=== PATIENT | female | born 1945 | race Caucasian/White ===

== ENCOUNTER 2019-07-25 09:32 | Inpatient (IN) | payer MEDICARE, OTHER ==
--- NOTE | 2019-07-25 10:29 | EDM.PDOC ---
ED HPI GENERAL MEDICAL PROBLEM - General Chief Complaint: Gastrointestinal Problem Stated Complaint: BLOOD IN STOOL Time Seen by Provider: 07/25/19 09:55 Source of Information: Reports: Patient History Limitations: Reports: No Limitations - History of Present Illness INITIAL COMMENTS - FREE TEXT/NARRATIVE: 74-year-old female who arrives with hypotension this morning along with maroon stools for the past 48 hours. She is on Plavix after being diagnosed with coronary artery disease and receiving a stent 3 months ago, and has been on anticoagulation since that time. Originally she was on Brilinta, but side effects were tolerated and she was changed to Plavix over a month ago. She bruises easily but has not had any problems with GI bleeding. She has known hemorrhoids and has had a colonoscopy within the past couple of years. She has no abdominal pain, nausea or vomiting, she has a good appetite, but does feel somewhat weaker today than her baseline. No shortness of breath or fever. She has had maroonish soft stools for the past 48 hours. Duration: Day(s): (Maroon stools for the past 2 days) Associated Symptoms: Reports: Weakness - Related Data Allergies Allergy/AdvReac Type Severity Reaction Status Date / Time No Known Allergies Allergy Verified 11/01/15 07:57 Home Meds: Home Meds Calcium Carbonate/Vitamin D3 [Calcium Carbonate/Vitamin D 1250 MG-200 Unit] 1 tab PO DAILY 10/30/15 [History] Lisinopril 40 mg PO DAILY 10/30/15 [History] Multivitamin with Minerals [Multiple Vitamin] 1 tab PO DAILY 10/30/15 [History] Omeprazole Magnesium [Prilosec Otc] 20 mg PO DAILY 10/30/15 [History] atorvaSTATin [Lipitor] 40 mg PO BEDTIME 10/30/15 [History] cycloSPORINE [Restasis] 1 drop EYEBOTH DAILY 10/30/15 [History] Aspirin [Halfprin] 81 mg PO DAILY 07/25/19 [History] Clopidogrel [Plavix] 75 mg PO DAILY 07/25/19 [History] Past Medical History HEENT History: Reports: Allergic Rhinitis, Hard of Hearing, Impaired Vision Cardiovascular History: Reports: High Cholesterol, Hypertension, [place], Stents Gastrointestinal History: Reports: None Genitourinary History: Reports: UTI, Recurrent 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: Musculoskeletal History: Reports: Osteoarthritis Hematologic History: Reports: Blood Transfusion(s) - Infectious Disease History Infectious Disease History: Reports: Chicken Pox, Measles, Mumps - Past Surgical History HEENT Surgical History: Reports: Tonsillectomy, Other (See Below) Cardiovascular Surgical History: Reports: Coronary Artery Stent, Other (See Below) Other Cardiovascular Surgeries/Procedures: STENTS PLACE IN APRIL AND MAY OF 2019 GI Surgical History: Reports: Colonoscopy, Other (See Below) Musculoskeletal Surgical History: Reports: Other (See Below) Social & Family History - Tobacco Use Smoking Status *Q: Never Smoker ED ROS GENERAL - Review of Systems Review Of Systems: See Below Constitutional: Denies: Fever, Chills, Malaise HEENT: Reports: No Symptoms Respiratory: Denies: Shortness of Breath Cardiovascular: Denies: Chest Pain GI/Abdominal: Reports: Bloody Stool, Hematochezia. Denies: Abdominal Pain, Nausea, Vomiting : Reports: No Symptoms Skin: Reports: No Symptoms (Get) Neurological: Reports: Weakness. Denies: Dizziness, Headache, Syncope, Difficulty Walking Psychiatric: Reports: No Symptoms ED EXAM, GI/ABD - Physical Exam Exam: See Below Exam Limited By: No Limitations General Appearance: Alert, No Apparent Distress Eyes: Bilateral: Normal Appearance Respiratory/Chest: No Respiratory Distress, Lungs Clear Cardiovascular: Regular Rate, Rhythm, Tachycardia GI/Abdominal Exam: Soft, Non-Tender Rectal (Female) Exam: Bloody Stool, Heme + Stool. No: Hemorrhoids, Mass, Perirectal Abscess, Rectal Fissure, Tenderness Extremities: Normal Inspection. No: Pedal Edema Neurological: Alert, Oriented Psychiatric: Normal Affect, Normal Mood Skin Exam: Warm, Dry, Other (A few scattered superficial bruises are present, the largest is on her left forearm) Course - Vital Signs Last Recorded V/S: Last Vital Signs Temp 97.6 F 07/25/19 14:48 Pulse 84 07/25/19 16:05 Resp 13 07/25/19 16:05 BP 132/74 07/25/19 16:05 Pulse Ox 100 07/25/19 16:05 - Orders/Labs/Meds Orders: Medication Orders Acetaminophen (Tylenol) 650 mg PO Q4H PRN PRN Reason: Pain (Mild 1-3)/fever Last Admin: 07/25/19 16:12 Dose: 650 mg Artificial Tears (Genteal Mild To Moderate Ophth Soln) 0 ml EYEBOTH QID PRN PRN Reason: DRY EYES Aspirin (Halfprin) 81 mg PO DAILY WILL Atorvastatin Calcium (Lipitor) 40 mg PO BEDTIME WILL Bisacodyl (Dulcolax) 10 mg PO ONETIME ONE Stop: 07/25/19 20:01 Clopidogrel Bisulfate (Plavix) 75 mg PO DAILY [facility] Sodium Chloride (Normal Saline) 1,000 mls @ 125 mls/hr IV ASDIRECTED WILL Lisinopril (Prinivil) 20 mg PO DAILY WILL Ondansetron HCl (Zofran) 4 mg IV Q4H PRN PRN Reason: Nausea/Vomiting Pantoprazole Sodium (Protonix Iv) 40 mg IVPUSH Q12H WILL Polyethylene Glycol (Miralax) 238 gm PO ONETIME ONE Stop: 07/25/19 17:01 Sodium Chloride (Saline Flush) 10 ml FLUSH ASDIRECTED PRN PRN Reason: Keep Vein Open Labs: Laboratory Tests 07/25/19 07/25/19 07/25/19 Range/Units 10:28 10:28 10:28 WBC 5.6 (4.5-11.0) K/uL RBC 3.57 (3.30-5.50) M/uL Hgb 10.5 L (12.0-15.0) g/dL Hct 34.2 L (36.0-48.0) % MCV 96 (80-98) fL MCH 29 (27-31) pg MCHC 31 L (32-36) % Plt Count 313 (150-400) K/uL Neut % (Auto) 73 H (36-66) % Lymph % (Auto) 18 L (24-44) % [place] % (Auto) 8 H (2-6) % Eos % (Auto) 1 L (2-4) % Baso % (Auto) 1 (0-1) % PT 10.6 (9.5-12.0) sec INR 0.98 (0.80-1.20) Sodium 138 L (140-148) mmol/L Potassium 4.1 (3.6-5.2) mmol/L Chloride 101 (100-108) mmol/L Carbon Dioxide 26 (21-32) mmol/L Anion Gap 15.1 H (5.0-14.0) mmol/L BUN 18 (7-18) mg/dL Creatinine 1.0 (0.6-1.0) mg/dL Est Cr Clr Drug Dosing 38.44 mL/min Estimated GFR (MDRD) 54 L (>60) Glucose 98 (74-106) mg/dL Calcium 9.0 (8.5-10.1) mg/dL Total Bilirubin 0.3 (0.2-1.0) mg/dL AST 21 (15-37) U/L ALT 29 (12-78) U/L Alkaline Phosphatase 96 (46-116) U/L Total Protein 7.3 (6.4-8.2) g/dL Albumin 4.1 (3.4-5.0) g/dL Globulin 3.2 (2.3-3.5) g/dL Albumin/Globulin Ratio 1.3 (1.2-2.2) Meds: Medications Generic Name Dose Route Start Last Admin Trade Name Freq PRN Reason Stop Dose Admin Acetaminophen 650 mg 07/25/19 11:35 07/25/19 16:12 Tylenol PO 650 mg Q4H PRN Administration Pain (Mild 1-3)/fever Artificial Tears 0 ml 07/25/19 12:42 Genteal Mild To Moderate Ophth Soln EYEBOTH QID PRN DRY EYES Aspirin 81 mg 07/26/19 09:00 Halfprin PO DAILY [facility] Atorvastatin Calcium 40 mg 07/25/19 21:00 Lipitor PO BEDTIME [facility] Bisacodyl 10 mg 07/25/19 20:00 Dulcolax PO 07/25/19 20:01 ONETIME ONE Clopidogrel Bisulfate 75 mg 07/26/19 09:00 Plavix PO DAILY [facility] Sodium Chloride 1,000 mls @ 125 mls/hr 07/25/19 11:35 Normal Saline IV ASDIRECTED [facility] Lisinopril 20 mg 07/26/19 09:00 Prinivil PO DAILY [facility] Ondansetron HCl 4 mg 07/25/19 11:35 Zofran IV Q4H PRN Nausea/Vomiting Pantoprazole Sodium 40 mg 07/25/19 20:00 Protonix Iv IVPUSH Q12H [facility] Polyethylene Glycol 238 gm 07/25/19 17:00 Miralax PO 07/25/19 17:01 ONETIME ONE Sodium Chloride 10 ml 07/25/19 11:35 Saline Flush FLUSH ASDIRECTED PRN Keep Vein Open Discontinued Medications Generic Name Dose Route Start Last Admin Trade Name Wyatt PRN Reason Stop Dose Admin Bisacodyl 10 mg 07/25/19 14:13 07/25/19 14:37 Dulcolax PO 07/25/19 14:14 10 mg ONETIME ONE Administration Fentanyl Confirm 07/25/19 11:36 Sublimaze Administered 07/25/19 11:37 Dose 100 mcg .ROUTE .STK-MED ONE Sodium Chloride 1,000 mls @ 500 mls/hr 07/25/19 10:30 07/25/19 10:33 Normal Saline IV 500 mls/hr ASDIRECTED WILL Administration Octreotide Acetate 500 mcg/ 500 mls @ 50 mls/hr 07/25/19 12:00 07/25/19 13:37 Sodium Chloride IV 50 mcg/hr Q10H WILL 50 mls/hr Administration 50 MCG/HR Pantoprazole Sodium 80 mg/ 100 mls @ 10 mls/hr 07/25/19 12:00 07/25/19 13:32 Sodium Chloride IV 10 mls/hr .Q10H WILL Administration Midazolam HCl Confirm 07/25/19 11:36 Versed 1 Mg/Ml Administered 07/25/19 11:37 Dose 2 mg .ROUTE .STK-MED ONE Octreotide Acetate 50 mcg 07/25/19 11:50 07/25/19 13:44 Sandostatin IVPUSH 07/25/19 11:51 50 mcg ONETIME ONE Administration Pantoprazole Sodium 80 mg 07/25/19 10:30 07/25/19 10:35 Protonix Iv IVPUSH 80 mg .BOLUS WILL Administration Propofol Confirm 07/25/19 11:36 Diprivan 20 Ml Administered 07/25/19 11:37 Dose 200 mg .ROUTE .STK-MED ONE - Re-Assessments/Exams Free Text/Narrative Re-Assessment/Exam: 07/25/19 10:28 An IV was started and the patient will be given 500 cc of normal saline an hour , CBC CMP pro time and INR were obtained. Hemoccult confirmed blood in the stool which was obvious visually as well 07/25/19 10:44 Hemoglobin is 10.5, the most recent we can find from clinical records is 13.5 9 months ago. BMP is still pending, BUN likely will be elevated. Discussed her condition with Dr. Lara of the hospitalist service, should be given 80 mg of IV Protonix and be prepared for admission for observation. 07/25/19 10:56 INR is 0.98, chemistry profile is surprisingly normal even BUN. Departure - Departure Time of Disposition: 11:52 Disposition: Admitted As Inpatient 65 Clinical Impression: Hematochezia GI bleed Qualifiers: GI bleed type/associated pathology: melena Qualified Code(s): K92.1 - Melena - Discharge Information Sepsis Event Note - Evaluation Sepsis Screening Result: No Definite Risk - Focused Exam Vital Signs: Vital Signs Temp Pulse Resp BP Pulse Ox 07/25/19 09:51 95 144/75 H 07/25/19 09:46 97.8 F 105 H 16 165/68 H 99 07/25/19 09:45 97.8 F 105 H 16 165/68 H 99 Date Exam was Performed: 07/25/19 Time Exam was Performed: 16:16
[2019-07-25] MEDS ORDERED: Pantoprazole 40 MG Vial IVPUSH SCH (10:30)
[2019-07-25] MEDS ORDERED: Sodium Chloride 0.9% 1,000 ML IV SCH (10:30)
--- NOTE | 2019-07-25 11:07 | PCM.HP.2 ---
H&P History of Present Illness - General Date of Service: 07/25/19 Admit Problem/Dx: Admission Diagnosis/Problem Admission Diagnosis/Problem Bleeding Source of Information: Patient, Provider, RN Notes Reviewed History Limitations: Reports: No Limitations - History of Present Illness Initial Comments - Free Text/Narative: Ms. Prabhakar is a 74-year-old woman who was admitted through the emergency department with lightheadedness, weakness, and melenic stool secondary to a GI bleed. She denies any previous history of ulcer disease or GI bleed. She is status post angioplasty with stent placements done in the last few months and is currently treated with aspirin and Plavix. Over the last 2 days has noted melenic maroon appearing stool and has developed symptoms of weakness and lightheadedness. Her last known hemoglobin level was over 13 and today is found to be 10.5. - Related Data Allergies/Adverse Reactions: Allergies Allergy/AdvReac Type Severity Reaction Status Date / Time No Known Allergies Allergy Verified 11/01/15 07:57 Home Medications: Home Meds Calcium Carbonate/Vitamin D3 [Calcium Carbonate/Vitamin D 1250 MG-200 Unit] 1 tab PO DAILY 10/30/15 [History] Lisinopril 20 mg PO DAILY 10/30/15 [History] Multivitamin with Minerals [Multiple Vitamin] 1 tab PO DAILY 10/30/15 [History] Omeprazole Magnesium [Prilosec Otc] 20 mg PO DAILY 10/30/15 [History] atorvaSTATin [Lipitor] 40 mg PO BEDTIME 10/30/15 [History] cycloSPORINE [Restasis] 1 drop EYEBOTH DAILY 10/30/15 [History] Aspirin [Halfprin] 81 mg PO DAILY 07/25/19 [History] Clopidogrel [Plavix] 75 mg PO DAILY 07/25/19 [History] Past Medical History HEENT History: Reports: Allergic Rhinitis, Hard of Hearing, Impaired Vision Cardiovascular History: Reports: High Cholesterol, Hypertension, [place], Stents Gastrointestinal History: Reports: None Genitourinary History: Reports: UTI, Recurrent 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: Musculoskeletal History: Reports: Osteoarthritis Hematologic History: Reports: Blood Transfusion(s) - Infectious Disease History Infectious Disease History: Reports: Chicken Pox, Measles, Mumps - Past Surgical History HEENT Surgical History: Reports: Tonsillectomy, Other (See Below) Cardiovascular Surgical History: Reports: Coronary Artery Stent, Other (See Below) Other Cardiovascular Surgeries/Procedures: STENTS PLACE IN APRIL AND MAY OF 2019 GI Surgical History: Reports: Colonoscopy, Other (See Below) Musculoskeletal Surgical History: Reports: Other (See Below) Social & Family History - Tobacco Use Smoking Status *Q: Never Smoker H&P Review of Systems - Review of Systems: Review Of Systems: See Below General: Reports: Weakness, Fatigue. Denies: Fever, Chills HEENT: Reports: No Symptoms Pulmonary: Reports: No Symptoms Cardiovascular: Reports: No Symptoms Gastrointestinal: Reports: Black Stool. Denies: Abdominal Pain, Constipation, Diarrhea, Decreased Appetite, Difficulty Swallowing, Distension, Hematochezia, Nausea, Vomiting Genitourinary: Reports: No Symptoms Musculoskeletal: Reports: No Symptoms Skin: Reports: No Symptoms Psychiatric: Reports: No Symptoms Neurological: Reports: No Symptoms Hematologic/Lymphatic: Reports: No Symptoms Immunologic: Reports: No Symptoms Exam - Exam Exam: See Below - Vital Signs Vital Signs: Last Vital Signs Temp 97.8 F 07/25/19 09:46 Pulse 95 07/25/19 09:51 Resp 16 07/25/19 09:46 BP 144/75 H 07/25/19 09:51 Pulse Ox 99 07/25/19 09:46 Weight: 135 lb - Exam Quality Assessment: DVT Prophylaxis General: Alert, Oriented, Cooperative, Mild Distress HEENT: Conjunctiva Clear, Hearing Intact, Mucosa Moist & [place], Normal Nasal Septum, Posterior Pharynx Clear, Pupils Equal Neck: Supple, Trachea Midline, +2 Carotid Pulse wo Bruit Lungs: Clear to Auscultation, Normal Respiratory Effort Cardiovascular: Regular Rate, Regular Rhythm, Normal S1, Normal S2. No: Systolic Murmur, Diastolic Murmur GI/Abdominal Exam: Soft, Non-Tender, No Organomegaly, No Distention Extremities: Non-Tender, No Pedal Edema Skin: Warm, Dry Neurological: Cranial Nerves Intact, Strength Equal Bilateral, Normal Speech, Normal Tone, Sensation Intact. No: Focal Deficit Neuro Extensive - Mental Status: Alert, Oriented x3, Normal Mood/Affect, Normal Cognition, Memory Intact - Patient Data Lab Results Last 24 hrs: Laboratory Results - last 24 hr 07/25/19 07/25/19 07/25/19 Range/Units 10:28 10:28 10:28 WBC 5.6 (4.5-11.0) K/uL RBC 3.57 (3.30-5.50) M/uL Hgb 10.5 L (12.0-15.0) g/dL Hct 34.2 L (36.0-48.0) % MCV 96 (80-98) fL MCH 29 (27-31) pg MCHC 31 L (32-36) % Plt Count 313 (150-400) K/uL Neut % (Auto) 73 H (36-66) % Lymph % (Auto) 18 L (24-44) % [place] % (Auto) 8 H (2-6) % Eos % (Auto) 1 L (2-4) % Baso % (Auto) 1 (0-1) % PT 10.6 (9.5-12.0) sec INR 0.98 (0.80-1.20) Sodium 138 L (140-148) mmol/L Potassium 4.1 (3.6-5.2) mmol/L Chloride 101 (100-108) mmol/L Carbon Dioxide 26 (21-32) mmol/L Anion Gap 15.1 H (5.0-14.0) mmol/L BUN 18 (7-18) mg/dL Creatinine 1.0 (0.6-1.0) mg/dL Est Cr Clr Drug Dosing 38.44 mL/min Estimated GFR (MDRD) 54 L (>60) Glucose 98 (74-106) mg/dL Calcium 9.0 (8.5-10.1) mg/dL Total Bilirubin 0.3 (0.2-1.0) mg/dL AST 21 (15-37) U/L ALT 29 (12-78) U/L Alkaline Phosphatase 96 (46-116) U/L Total Protein 7.3 (6.4-8.2) g/dL Albumin 4.1 (3.4-5.0) g/dL Globulin 3.2 (2.3-3.5) g/dL Albumin/Globulin Ratio 1.3 (1.2-2.2) Result Diagrams: 07/25/19 10:28 07/25/19 10:28 Gigi Results Last 24 hrs: Microbiology 07/25/19 10:19 Stool Occult Blood (GIGI) - Final Stool / Feces Sepsis Event Note - Evaluation Sepsis Screening Result: No Definite Risk - Focused Exam Vital Signs: Vital Signs Temp Pulse Resp BP Pulse Ox 07/25/19 09:51 95 144/75 H 07/25/19 09:46 97.8 F 105 H 16 165/68 H 99 07/25/19 09:45 97.8 F 105 H 16 165/68 H 99 Date Exam was Performed: 07/25/19 Time Exam was Performed: 11:46 *Q Meaningful Use (ADM) - VTE *Q VTE Pharmacological Contraindications *Q: Active Hemorrhage - VTE Risk Assess *Q Each Risk Factor Represents 1 Point: None Total Score 1 Point Risk Factors: 0 Each Risk Factor Represents 2 Points: None Total Score 2 Point Risk Factors: 0 Each Risk Factor Represents 3 Points: Age 75 Years or Greater Total Score 3 Point Risk Factors: 3 Each Risk Factor Represents 5 Points: None Total Score 5 Point Risk Factors: 0 Venous Thromboembolism Risk Factor Score *Q: 3 Problem List Initiated/Reviewed/Updated: Yes Orders Last 24hrs: Active Orders 24 hr Category Date Time Status Patient Status Manage Transfer [TRANSFER] Routine ADT 07/25/19 10:47 Active Pantoprazole [ProTONIX IV] Med 07/25/19 10:30 Active 80 mg IVPUSH .BOLUS Sodium Chloride 0.9% [Normal Saline] 1,000 ml Med 07/25/19 10:30 Active IV ASDIRECTED Resuscitation Status Routine Resus Stat 07/25/19 10:48 Ordered Medication Orders Sodium Chloride (Normal Saline) 1,000 mls @ 500 mls/hr IV ASDIRECTED [facility] Last Admin: 07/25/19 10:33 Dose: 500 mls/hr Pantoprazole Sodium (Protonix Iv) 80 mg IVPUSH .BOLUS [facility] Last Admin: 07/25/19 10:35 Dose: 80 mg Assessment/Plan Comment:: ASSESSMENT AND PLAN GASTROINTESTINAL BLEED-likely source upper GI tract. History of melenic/maroon stool for the last 2 days. Symptoms of weakness and lightheadedness, denies abdominal pain. Complicated by current therapy with aspirin and Plavix. -Maintain 2 IV sites -2 units of blood on hold -Protonix IV bolus and continuous infusion -Octreotide bolus and continuous infusion -Serial hemoglobin levels -Monitor in ICU -Consult Dr. Regan for EGD ACUTE BLOOD LOSS ANEMIA-secondary to upper GI bleed CORONARY ARTERY DISEASE-history of angioplasty and stents within the past several months. -Continue outpatient medical therapy including aspirin and Plavix MAINTENANCE ISSUES -DVT prophylaxis; SCUDs, hold on anticoagulation because of acute hemorrhage -GI prophylaxis; Protonix as above -Santos catheter; not indicated -Nutrition; n.p.o. until after EGD -Nicotine dependence; not required CODE STATUS-FULL CODE ADMISSION STATUS-patient will be admitted to inpatient status, expect at least a 2 night hospital stay for evaluation and management of problems as outlined above. At the time of this admission I do not reasonably expected evaluation and management of this problem will require more than a 96 hour hospital stay. DISPOSITION-anticipate discharge to home after the hospital stay. PRIMARY CARE PROVIDER-Lavern Myers - Mortality Measure Prognosis:: Good
[2019-07-25] MEDS ORDERED: Ondansetron 4 MG/2 ML SDV IV PRN (11:35)
[2019-07-25] MEDS ORDERED: Sodium Chloride 0.9% 10 ML Syringe FLUSH PRN (11:35)
[2019-07-25] MEDS ORDERED: fentaNYL 100 MCG/2 ML SDV ONE (11:36)
[2019-07-25] MEDS ORDERED: Midazolam 1 MG/ML 2 ML SDV ONE (11:36)
[2019-07-25] MEDS ORDERED: Propofol 200 MG/20 ML SDV ONE (11:36)
[2019-07-25] MEDS ORDERED: Octreotide 100 MCG/ML SDV IVPUSH ONE (11:50)
[2019-07-25] MEDS ORDERED: Sodium Chloride 0.9% 100 ML with Pantoprazole 80 MG IV SCH ×2 (12:00)
[2019-07-25] MEDS ORDERED: Octreotide 500 MCG in Sodium Chloride 0.9% 497.5 ML IV SCH (12:00)
[2019-07-25] MEDS ORDERED: Hypromellose 0.3% Ophth Soln 15 ML Bottle EYEBOTH PRN (12:42)
[2019-07-25] MEDS ORDERED: Bisacodyl 5 MG Tab PO ONE ×2 (14:13→20:00)
[2019-07-25] MEDS: Acetaminophen 325 MG Tab PO PRN ×2 (16:12→20:26)
[2019-07-25] MEDS: Sodium Chloride 0.9% 1,000 ML IV SCH (16:16)
[2019-07-25] MEDS ORDERED: Polyethylene Glycol 3350 Powder 238 GM Bot PO ONE (17:00)
[2019-07-25] MEDS: atorvaSTATin 20 MG Tab PO SCH ×2 (20:26→20:31)
[2019-07-25] MEDS: Pantoprazole 40 MG Vial IVPUSH SCH (20:26)
[2019-07-25] MEDS ORDERED: Non-Formulary Medication 1 Each (Atorvastatin [Lipitor] 40 MG) PO SCH (21:00)
[2019-07-26] MEDS: Sodium Chloride 0.9% 1,000 ML IV SCH (02:58)
[2019-07-26] MEDS ORDERED: Midazolam 1 MG/ML 2 ML SDV ONE (07:03)
[2019-07-26] MEDS ORDERED: fentaNYL 100 MCG/2 ML SDV ONE (07:03)
[2019-07-26] MEDS ORDERED: Propofol 200 MG/20 ML SDV ONE (07:04)
[2019-07-26] MEDS: Pantoprazole 40 MG Vial IVPUSH SCH (08:38)
[2019-07-26] MEDS ORDERED: Non-Formulary Medication 1 Each (Cyclosporine [Restasis] 1 DROP) EYEBOTH SCH (09:00)
--- NOTE | 2019-07-26 10:14 | PCM.PN ---
- General Info Date of Service: 07/26/19 Subjective Update: Ms. Prabhakar has been fairly stable since admission. No evidence of active bleeding during the night. Hemoglobin did drop to 8.2 last night, because of concern for active bleeding she was transfused 1 unit of red blood cells. EGD performed yesterday by Dr. Regan showed only mild gastritis. Colonoscopy this morning showed diverticulosis but no evidence of active bleeding. Functional Status: Reports: Tolerating Diet, Ambulating, Urinating - Review of Systems General: Reports: Weakness. Denies: Fever, Chills Pulmonary: Reports: No Symptoms Cardiovascular: Reports: No Symptoms Gastrointestinal: Reports: No Symptoms - Patient Data Vitals - Most Recent: Last Vital Signs Temp 97.5 F 07/26/19 07:55 Pulse 76 07/26/19 06:00 Resp 14 07/26/19 09:30 BP 131/69 07/26/19 09:30 Pulse Ox 99 07/26/19 09:30 Weight - Most Recent: 142 lb I&O - Last 24 Hours: Intake & Output 07/25/19 07/26/19 07/26/19 22:59 06:59 14:59 Intake Total 3258 1449 Balance 3258 1449 Lab Results Last 24 Hours: Laboratory Results - last 24 hr 07/25/19 07/25/19 07/25/19 Range/Units 10:28 10:28 10:28 WBC 5.6 (4.5-11.0) K/uL RBC 3.57 (3.30-5.50) M/uL Hgb 10.5 L (12.0-15.0) g/dL Hct 34.2 L (36.0-48.0) % MCV 96 (80-98) fL MCH 29 (27-31) pg MCHC 31 L (32-36) % Plt Count 313 (150-400) K/uL Neut % (Auto) 73 H (36-66) % Lymph % (Auto) 18 L (24-44) % Collin % (Auto) 8 H (2-6) % Eos % (Auto) 1 L (2-4) % Baso % (Auto) 1 (0-1) % PT 10.6 (9.5-12.0) sec INR 0.98 (0.80-1.20) Sodium 138 L (140-148) mmol/L Potassium 4.1 (3.6-5.2) mmol/L Chloride 101 (100-108) mmol/L Carbon Dioxide 26 (21-32) mmol/L Anion Gap 15.1 H (5.0-14.0) mmol/L BUN 18 (7-18) mg/dL Creatinine 1.0 (0.6-1.0) mg/dL Est Cr Clr Drug Dosing 38.44 mL/min Estimated GFR (MDRD) 54 L (>60) Glucose 98 (74-106) mg/dL Calcium 9.0 (8.5-10.1) mg/dL Total Bilirubin 0.3 (0.2-1.0) mg/dL AST 21 (15-37) U/L ALT 29 (12-78) U/L Alkaline Phosphatase 96 (46-116) U/L Total Protein 7.3 (6.4-8.2) g/dL Albumin 4.1 (3.4-5.0) g/dL Globulin 3.2 (2.3-3.5) g/dL Albumin/Globulin Ratio 1.3 (1.2-2.2) Blood Type Gel Antibody Screen Crossmatch 07/25/19 07/25/19 07/25/19 Range/Units 11:55 11:55 17:00 WBC (4.5-11.0) K/uL RBC (3.30-5.50) M/uL Hgb 9.3 L 9.9 L (12.0-15.0) g/dL Hct (36.0-48.0) % MCV (80-98) fL MCH (27-31) pg MCHC (32-36) % Plt Count (150-400) K/uL Neut % (Auto) (36-66) % Lymph % (Auto) (24-44) % Collin % (Auto) (2-6) % Eos % (Auto) (2-4) % Baso % (Auto) (0-1) % PT (9.5-12.0) sec INR (0.80-1.20) Sodium (140-148) mmol/L Potassium (3.6-5.2) mmol/L Chloride (100-108) mmol/L Carbon Dioxide (21-32) mmol/L Anion Gap (5.0-14.0) mmol/L BUN (7-18) mg/dL Creatinine (0.6-1.0) mg/dL Est Cr Clr Drug Dosing mL/min Estimated GFR (MDRD) (>60) Glucose (74-106) mg/dL Calcium (8.5-10.1) mg/dL Total Bilirubin (0.2-1.0) mg/dL AST (15-37) U/L ALT (12-78) U/L Alkaline Phosphatase (46-116) U/L Total Protein (6.4-8.2) g/dL Albumin (3.4-5.0) g/dL Globulin (2.3-3.5) g/dL Albumin/Globulin Ratio (1.2-2.2) Blood Type A POSITIVE Gel Antibody Screen Negative Crossmatch See Detail 07/25/19 07/26/19 07/26/19 Range/Units 23:00 05:30 05:30 WBC 6.0 (4.5-11.0) K/uL RBC 3.69 (3.30-5.50) M/uL Hgb 8.2 L 10.8 L D (12.0-15.0) g/dL Hct 34.2 L (36.0-48.0) % MCV 93 (80-98) fL MCH 29 (27-31) pg MCHC 32 (32-36) % Plt Count 261 (150-400) K/uL Neut % (Auto) 65 (36-66) % Lymph % (Auto) 26 (24-44) % Collin % (Auto) 7 H (2-6) % Eos % (Auto) 1 L (2-4) % Baso % (Auto) 1 (0-1) % PT (9.5-12.0) sec INR (0.80-1.20) Sodium 142 (140-148) mmol/L Potassium 4.2 (3.6-5.2) mmol/L Chloride 108 (100-108) mmol/L Carbon Dioxide 26 (21-32) mmol/L Anion Gap 8.4 (5.0-14.0) mmol/L BUN 11 (7-18) mg/dL Creatinine 0.9 (0.6-1.0) mg/dL Est Cr Clr Drug Dosing 43.70 mL/min Estimated GFR (MDRD) > 60 (>60) Glucose 88 (74-106) mg/dL Calcium 8.3 L (8.5-10.1) mg/dL Total Bilirubin (0.2-1.0) mg/dL AST (15-37) U/L ALT (12-78) U/L Alkaline Phosphatase (46-116) U/L Total Protein (6.4-8.2) g/dL Albumin (3.4-5.0) g/dL Globulin (2.3-3.5) g/dL Albumin/Globulin Ratio (1.2-2.2) Blood Type Gel Antibody Screen Crossmatch Gigi Results Last 24 Hours: Microbiology 07/25/19 10:19 Stool Occult Blood (GIGI) - Final Stool / Feces Med Orders - Current: Current Medications Acetaminophen (Tylenol) 650 mg PO Q4H PRN PRN Reason: Pain (Mild 1-3)/fever Last Admin: 07/25/19 20:26 Dose: 650 mg Artificial Tears (Genteal Mild To Moderate Ophth Soln) 0 ml EYEBOTH QID PRN PRN Reason: DRY EYES Aspirin (Halfprin) 81 mg PO DAILY [facility] Atorvastatin Calcium (Lipitor) 40 mg PO BEDTIME WILL Last Admin: 07/25/19 20:31 Dose: 40 mg Clopidogrel Bisulfate (Plavix) 75 mg PO DAILY [facility] Lisinopril (Prinivil) 20 mg PO DAILY [facility] Ondansetron HCl (Zofran) 4 mg IV Q4H PRN PRN Reason: Nausea/Vomiting Pantoprazole Sodium (Protonix) 40 mg PO DAILY [facility] Sodium Chloride (Saline Flush) 10 ml FLUSH ASDIRECTED PRN PRN Reason: Keep Vein Open Discontinued Medications Bisacodyl (Dulcolax) 10 mg PO ONETIME ONE Stop: 07/25/19 14:14 Last Admin: 07/25/19 14:37 Dose: 10 mg Bisacodyl (Dulcolax) 10 mg PO ONETIME ONE Stop: 07/25/19 20:01 Last Admin: 07/25/19 20:26 Dose: 10 mg Fentanyl (Sublimaze) Confirm Administered Dose 100 mcg .ROUTE .STK-MED ONE Stop: 07/25/19 11:37 Fentanyl (Sublimaze) Confirm Administered Dose 100 mcg .ROUTE .STK-MED ONE Stop: 07/26/19 07:04 Sodium Chloride (Normal Saline) 1,000 mls @ 500 mls/hr IV ASDIRECTED [facility] Last Admin: 07/25/19 10:33 Dose: 500 mls/hr Octreotide Acetate 500 mcg/ (Sodium Chloride) 500 mls @ 50 mls/hr IV Q10H [facility] Last Admin: 07/25/19 13:37 Dose: 50 mcg/hr, 50 mls/hr Pantoprazole Sodium 80 mg/ (Sodium Chloride) 100 mls @ 10 mls/hr IV .Q10H [facility] Last Admin: 07/25/19 13:32 Dose: 10 mls/hr Sodium Chloride (Normal Saline) 1,000 mls @ 125 mls/hr IV ASDIRECTED [facility] Last Admin: 07/26/19 02:58 Dose: 125 mls/hr Midazolam HCl (Versed 1 Mg/Ml) Confirm Administered Dose 2 mg .ROUTE .STK-MED ONE Stop: 07/25/19 11:37 Midazolam HCl (Versed 1 Mg/Ml) Confirm Administered Dose 2 mg .ROUTE .STK-MED ONE Stop: 07/26/19 07:04 Octreotide Acetate (Sandostatin) 50 mcg IVPUSH ONETIME ONE Stop: 07/25/19 11:51 Last Admin: 07/25/19 13:44 Dose: 50 mcg Pantoprazole Sodium (Protonix Iv) 80 mg IVPUSH .BOLUS [facility] Last Admin: 07/25/19 10:35 Dose: 80 mg Pantoprazole Sodium (Protonix Iv) 40 mg IVPUSH Q12H [facility] Last Admin: 07/26/19 08:38 Dose: 40 mg Polyethylene Glycol (Miralax) 238 gm PO ONETIME ONE Stop: 07/25/19 17:01 Last Admin: 07/25/19 16:41 Dose: 238 gm Propofol (Diprivan 20 Ml) Confirm Administered Dose 200 mg .ROUTE .STK-MED ONE Stop: 07/25/19 11:37 Propofol (Diprivan 20 Ml) Confirm Administered Dose 200 mg .ROUTE .STK-MED ONE Stop: 07/26/19 07:05 - Exam Quality Assessment: DVT Prophylaxis General: Alert, Oriented, Cooperative, No Acute Distress Lungs: Clear to Auscultation, Normal Respiratory Effort Cardiovascular: Regular Rate, Regular Rhythm, No Murmurs GI/Abdominal Exam: Soft, Non-Tender, No Organomegaly, No Distention Extremities: Non-Tender, No Pedal Edema Sepsis Event Note - Evaluation Sepsis Screening Result: No Definite Risk - Focused Exam Vital Signs: Vital Signs Temp Temp Pulse Resp BP Pulse Ox 07/26/19 09:30 14 131/69 99 07/26/19 09:15 12 128/58 L 07/26/19 09:00 12 142/66 H 98 07/26/19 08:45 12 123/78 98 07/26/19 08:32 12 134/78 100 07/26/19 08:15 16 126/69 99 07/26/19 08:10 16 116/62 99 07/26/19 08:05 15 93/55 L 99 07/26/19 08:00 16 92/49 L 99 07/26/19 07:55 97.5 F 14 79/39 L 99 07/26/19 07:35 97.8 F 12 139/78 99 07/26/19 06:00 76 17 137/73 97 07/26/19 04:00 97.0 F 74 13 114/60 98 07/26/19 02:57 96.8 F L 78 14 119/70 100 07/26/19 02:30 97.0 F 73 13 125/69 100 07/26/19 02:00 97.0 F 97.0 F 74 16 115/64 100 07/26/19 01:30 97.0 F 76 14 100/51 L 98 07/26/19 01:00 97.2 F 71 17 108/53 L 99 07/26/19 00:45 97.3 F 74 13 117/59 L 100 07/26/19 00:30 96.8 F L 81 16 122/74 99 07/26/19 00:15 96.8 F L 74 17 113/57 L 100 07/26/19 00:00 97.0 F 97.0 F 79 12 136/68 100 07/25/19 23:53 97.0 F 75 12 121/69 98 Date Exam was Performed: 07/26/19 Time Exam was Performed: 10:11 - Problem List Review Problem List Initiated/Reviewed/Updated: Yes - My Orders Last 24 Hours: My Active Orders 07/25/19 10:48 Resuscitation Status Routine 07/25/19 11:35 Patient Status [ADT] Routine Ambulate [RC] QID Cardiac Monitoring [RC] Q6H Height and Weight [RC] DAILY Intake and Output [RC] QSHIFT Notify Provider Consults [RC] ASDIRECTED Notify Provider Vital Signs [RC] ASDIRECTED Oxygen Therapy [RC] PRN Peripheral IV Care [RC] Q12H Up With Assistance [RC] ASDIRECTED Up to Chair [RC] QID Vital Signs [RC] Q2H Consult to Physician [CONS] Routine Acetaminophen [Tylenol] 650 mg PO Q4H PRN Ondansetron [Zofran] 4 mg IV Q4H PRN Sodium Chloride 0.9% [Saline Flush] 10 ml FLUSH ASDIRECTED PRN Peripheral IV Insertion Adult [OM.PC] Routine Sequential Compression Device [OM.PC] Per Unit Routine VTE Pharmacological Contraindications [AST] Per Unit Routine 07/25/19 11:55 RED BLOOD CELLS LP [BBK] Stat TYPE AND SCREEN [BBK] Stat 07/25/19 12:42 Hypromellose [GenTeal Mild to Moderate Ophth Soln] 0 ml EYEBOTH QID PRN 07/25/19 14:13 Schedule Procedure [COMM] Routine 07/25/19 21:00 atorvaSTATin [Lipitor] 40 mg PO BEDTIME 07/25/19 23:40 Transfuse Red Blood Cells [COMM] Urgent 07/26/19 09:00 Aspirin [Halfprin] 81 mg PO DAILY Clopidogrel [Plavix] 75 mg PO DAILY lisinopriL [Prinivil] 20 mg PO DAILY 07/26/19 10:07 Convert IV to Saline Lock [OM.PC] Routine 07/26/19 10:09 Consult to Waste Handling Technician [CONS] Routine 07/26/19 17:00 HGB [HEMOGLOBIN] [HEME] Stat 07/26/19 Breakfast GI Soft Low Fiber [Soft Diet] [DIET] 07/27/19 05:11 HGB [HEMOGLOBIN] [HEME] AM 07/27/19 09:00 Pantoprazole [ProTONIX] 40 mg PO DAILY - Plan Plan:: ASSESSMENT AND PLAN GASTROINTESTINAL BLEED-no evidence of active bleeding through the night, vital signs have been stable. EGD showed only mild gastritis and colonoscopy showed diverticulosis but no evidence of active bleeding. -Maintain 2 IV sites -2 units of blood on hold -Serial hemoglobin levels -Monitor in ICU -Surgical follow-up per Dr. Regan -Soft low residue diet ACUTE BLOOD LOSS ANEMIA-secondary to upper GI bleed CORONARY ARTERY DISEASE-history of angioplasty and stents within the past several months. -Continue outpatient medical therapy including aspirin and Plavix MAINTENANCE ISSUES -DVT prophylaxis; SCUDs, hold on anticoagulation because of acute hemorrhage -GI prophylaxis; Protonix as above -Santos catheter; not indicated -Nutrition; n.p.o. until after EGD -Nicotine dependence; not required CODE STATUS-FULL CODE ADMISSION STATUS-patient will be admitted to inpatient status, expect at least a 2 night hospital stay for evaluation and management of problems as outlined above. At the time of this admission I do not reasonably expected evaluation and management of this problem will require more than a 96 hour hospital stay. DISPOSITION-anticipate discharge to home after the hospital stay. PRIMARY CARE PROVIDER-Lavern Myers
[2019-07-26] MEDS: Lisinopril 20 MG Tab PO SCH (10:15)
[2019-07-26] MEDS: Clopidogrel 75 MG Tab PO SCH (10:15)
[2019-07-26] MEDS: Aspirin 81 MG Tab.EC PO SCH (10:15)
[2019-07-26] MEDS: Acetaminophen 325 MG Tab PO PRN ×2 (11:33→20:14)
--- NOTE | 2019-07-26 12:20 | OR ---
DATE OF PROCEDURE: 07/25/2019 SURGEON: John Regan MD PROCEDURE: Esophagogastroduodenoscopy. FINDINGS: Very mild gastritis. COMPLICATIONS: None. LOAN COLLECTOR: None. ANESTHESIA: MAC. PREOPERATIVE DIAGNOSIS: Anemia. POSTOPERATIVE DIAGNOSIS: Anemia. RISKS: Risks, benefits, alternatives, and limitations including, but not limited to infection, bleeding, injury to abdominal structures, and other risks not listed here. The patient understands these risks and wishes to proceed. DESCRIPTION OF PROCEDURE: The patient was placed in left lateral decubitus position. The EGD scope was introduced and advanced atraumatically to the second part of the duodenum. No evidence of duodenitis or ulceration. No evidence of abnormal bleeding. The patient did have very mild gastritis in the gastric body, however, no evidence of ulceration. The esophagus was also inspected and was without abnormality. The patient tolerated the procedure well. John Regan MD /[id number]
--- NOTE | 2019-07-26 16:48 | OR ---
DATE OF PROCEDURE: 07/26/2019 SURGEON: John Regan MD PROCEDURE: Colonoscopy. FINDINGS: 1. No evidence of old or new blood. 2. Mild diverticulosis, limited to sigmoid colon. COMPLICATIONS: None. WAREHOUSE FORKLIFT OPERATOR: None. PREOPERATIVE DIAGNOSIS: Anemia. POSTOPERATIVE DIAGNOSIS: Anemia. RISKS: Risks, benefits, alternatives, and limitations including, but not limited to infection, bleeding, and perforation were explained to the patient, and they wished to proceed. PROCEDURE IN DETAIL: The patient was placed in left lateral decubitus position. Digital rectal exam was performed without abnormality, except for prominent external hemorrhoids. The scope was introduced and advanced atraumatically to the ileocecal valve. The scope was brought back through the ascending, transverse, descending colon, and retroflexed. No evidence of old or new blood. No masses. No polyps. No etiology for the anemia. The patient did have diverticulosis, which was described as mild, limited to sigmoid colon without evidence of active bleeding. The patient tolerated the procedure well. John Regan MD /[id number]
[2019-07-26] MEDS: atorvaSTATin 20 MG Tab PO SCH (20:14)
[2019-07-27 07:10] VITALS: BP 123/67; PULSE 82
[2019-07-27] MEDS: Acetaminophen 325 MG Tab PO PRN (07:18)
[2019-07-27] MEDS ORDERED: Pantoprazole 40 MG Tab.CR PO SCH (07:30)
[2019-07-27] MEDS: Aspirin 81 MG Tab.EC PO SCH (10:05)
[2019-07-27] MEDS: Lisinopril 20 MG Tab PO SCH (10:05)
[2019-07-27] MEDS: Clopidogrel 75 MG Tab PO SCH (10:05)
--- NOTE | 2019-07-27 12:33 | PCM.DCSUM1 ---
Discharge Summary - Hospital Course Brief History: Ms. Prabhakar is a 74-year-old woman who is admitted through the emergency department with weakness and lightheadedness secondary to a GI bleed. - Discharge Data Discharge Date: 07/27/19 Discharge Disposition: Home, Self-Care 01 Condition: Stable - Referral to Home Health Primary Care Physician: Elmira Myers PA-C - Discharge Diagnosis/Problem(s) (1) Melena SNOMED Code(s): 5146768 ICD Code: K92.1 - MELENA Status: Acute Current Visit: Yes (2) Acute blood loss anemia SNOMED Code(s): 127163658 ICD Code: D62 - ACUTE POSTHEMORRHAGIC ANEMIA Status: Acute Current Visit : Yes (3) GI bleed SNOMED Code(s): 30944369 ICD Code: K92.2 - GASTROINTESTINAL HEMORRHAGE, UNSPECIFIED Status: Acute Current Visit: Yes Qualifiers: GI bleed type/associated pathology: melena Qualified Code(s): K92.1 - Melena - Patient Summary/Data Consults: Consultations 07/25/19 11:35 Consult to Physician [CONS] Routine Consulting Provider: John Regan Call Completed to Consulting Physician: Yes Reason for Consult: For GI bleed, EGD in a.m. 07/26/19 10:09 Consult to Php Mysql Developer [CONS] Routine Comment: Physician Instructions: Quantity: Reason for Consult: Please review soft low residue diet Hospital Course: Ms. Prabhakar is a 74-year-old woman who was admitted through the emergency department with lightheadedness, weakness, and melenic stool secondary to a GI bleed. She denies any previous history of ulcer disease or GI bleed. She is status post angioplasty with stent placements done in the last few months and is currently treated with aspirin and Plavix. Over the last 2 days has noted melenic maroon appearing stool and has developed symptoms of weakness and lightheadedness. Her last known hemoglobin level was over 13 and today is found to be 10.5. On admission she was kept n.p.o. and given IV fluids for hydration. She was seen and evaluated by Dr. Regan and EGD was performed which showed only mild gastritis, not felt to be likely the source of recent blood loss. Colonoscopy prep was given and the following morning she underwent a colonoscopy by Dr. Regan, this showed evidence of diverticulosis but no evidence of active bleeding or blood within the colon. On the evening of admission her hemoglobin did drop to 8.2 and it appeared at that time as though she was having active bleeding. Because of the drop from admission she was transfused 1 unit of red blood cells. Hemoglobin remained stable thereafter with no further evidence of active bleeding. Initially on admission she was started both on Protonix continuous infusion as well as octreotide continuous infusion. With no obvious significant source of upper GI blood loss IV Protonix infusion and octreotide were discontinued. She was converted to oral Protonix and will be discharged home with this because of the mild gastritis noted on EGD. She was continued on her aspirin and Plavix throughout hospitalization because of her recent angioplasty and stent placement. She will return immediately to the emergency department if she notes further blood in her stool or symptoms of lightheadedness. Blood pressure was noted to be somewhat low during hospitalization and her dose of lisinopril was decreased to 20 mg daily. Activity will be as tolerated and she will be on a soft low residue diet for the next 2 weeks. Follow-up appointment will be scheduled with her primary care provider within 1 week and a hemoglobin level will be obtained at the time of follow-up appointment. - Patient Instructions Diet: GI Soft/Low Residue/Low Fiber Activity: As Tolerated Other/Special Instructions: Please schedule follow-up appointment with primary care provider within 1 week. Hemoglobin level should be obtained at the time of follow-up appointment. - Discharge Plan *PRESCRIPTION DRUG MONITORING PROGRAM REVIEWED*: Not Applicable *COPY OF PRESCRIPTION DRUG MONITORING REPORT IN PATIENT DONALDO: Not Applicable Prescriptions/Med Rec: Pantoprazole [ProTONIX] 40 mg PO DAILY@0730 #30 tab.cr Home Medications: Home Meds Calcium Carbonate/Vitamin D3 [Calcium Carbonate/Vitamin D 1250 MG-200 Unit] 1 tab PO DAILY 10/30/15 [History] Multivitamin with Minerals [Multiple Vitamin] 1 tab PO DAILY 10/30/15 [History] atorvaSTATin [Lipitor] 40 mg PO BEDTIME 10/30/15 [History] cycloSPORINE [Restasis] 1 drop EYEBOTH DAILY 10/30/15 [History] Aspirin [Halfprin] 81 mg PO DAILY 07/25/19 [History] Clopidogrel [Plavix] 75 mg PO DAILY 07/25/19 [History] Pantoprazole [ProTONIX] 40 mg PO DAILY@0730 #30 tab.cr 07/27/19 [Rx] lisinopriL [Prinivil] 20 mg PO DAILY tablet 07/27/19 [Rx] Referrals: Elmira yMers PA-C [Primary Care Provider] - - Discharge Summary/Plan Comment DC Time >30 min.: No - Patient Data Vitals - Most Recent: Last Vital Signs Temp 97.8 F 07/27/19 07:08 Pulse 82 07/27/19 07:08 Resp 18 07/27/19 07:08 BP 123/67 07/27/19 10:05 Pulse Ox 98 07/27/19 07:08 Weight - Most Recent: 142 lb I&O - Last 24 hours: Intake & Output 07/26/19 07/27/19 07/27/19 22:59 06:59 14:59 Intake Total 600 Balance 600 Lab Results - Last 24 hrs: Laboratory Results - last 24 hr 07/26/19 07/27/19 Range/Units 17:05 04:00 Hgb 10.7 L 10.2 L (12.0-15.0) g/dL Med Orders - Current: Current Medications Acetaminophen (Tylenol) 650 mg PO Q4H PRN PRN Reason: Pain (Mild 1-3)/fever Last Admin: 07/27/19 07:18 Dose: 325 mg Artificial Tears (Genteal Mild To Moderate Ophth Soln) 0 ml EYEBOTH QID PRN PRN Reason: DRY EYES Aspirin (Halfprin) 81 mg PO DAILY [facility] Last Admin: 07/27/19 10:05 Dose: 81 mg Atorvastatin Calcium (Lipitor) 40 mg PO BEDTIME [facility] Last Admin: 07/26/19 20:14 Dose: 40 mg Clopidogrel Bisulfate (Plavix) 75 mg PO DAILY [facility] Last Admin: 07/27/19 10:05 Dose: 75 mg Lisinopril (Prinivil) 20 mg PO DAILY [facility] Last Admin: 07/27/19 10:05 Dose: 20 mg Ondansetron HCl (Zofran) 4 mg IV Q4H PRN PRN Reason: Nausea/Vomiting Pantoprazole Sodium (Protonix) 40 mg PO DAILY@0730 [facility] Last Admin: 07/27/19 07:10 Dose: 40 mg Sodium Chloride (Saline Flush) 10 ml FLUSH ASDIRECTED PRN PRN Reason: Keep Vein Open Discontinued Medications Bisacodyl (Dulcolax) 10 mg PO ONETIME ONE Stop: 07/25/19 14:14 Last Admin: 07/25/19 14:37 Dose: 10 mg Bisacodyl (Dulcolax) 10 mg PO ONETIME ONE Stop: 07/25/19 20:01 Last Admin: 07/25/19 20:26 Dose: 10 mg Fentanyl (Sublimaze) Confirm Administered Dose 100 mcg .ROUTE .STK-MED ONE Stop: 07/25/19 11:37 Fentanyl (Sublimaze) Confirm Administered Dose 100 mcg .ROUTE .STK-MED ONE Stop: 07/26/19 07:04 Sodium Chloride (Normal Saline) 1,000 mls @ 500 mls/hr IV ASDIRECTED [facility] Last Admin: 07/25/19 10:33 Dose: 500 mls/hr Octreotide Acetate 500 mcg/ (Sodium Chloride) 500 mls @ 50 mls/hr IV Q10H [facility] Last Admin: 07/25/19 13:37 Dose: 50 mcg/hr, 50 mls/hr Pantoprazole Sodium 80 mg/ (Sodium Chloride) 100 mls @ 10 mls/hr IV .Q10H [facility] Last Admin: 07/25/19 13:32 Dose: 10 mls/hr Sodium Chloride (Normal Saline) 1,000 mls @ 125 mls/hr IV ASDIRECTED [facility] Last Admin: 07/26/19 02:58 Dose: 125 mls/hr Midazolam HCl (Versed 1 Mg/Ml) Confirm Administered Dose 2 mg .ROUTE .STK-MED ONE Stop: 07/25/19 11:37 Midazolam HCl (Versed 1 Mg/Ml) Confirm Administered Dose 2 mg .ROUTE .STK-MED ONE Stop: 07/26/19 07:04 Octreotide Acetate (Sandostatin) 50 mcg IVPUSH ONETIME ONE Stop: 07/25/19 11:51 Last Admin: 07/25/19 13:44 Dose: 50 mcg Pantoprazole Sodium (Protonix Iv) 80 mg IVPUSH .BOLUS [facility] Last Admin: 07/25/19 10:35 Dose: 80 mg Pantoprazole Sodium (Protonix Iv) 40 mg IVPUSH Q12H [facility] Last Admin: 07/26/19 08:38 Dose: 40 mg Polyethylene Glycol (Miralax) 238 gm PO ONETIME ONE Stop: 07/25/19 17:01 Last Admin: 07/25/19 16:41 Dose: 238 gm Propofol (Diprivan 20 Ml) Confirm Administered Dose 200 mg .ROUTE .STK-MED ONE Stop: 07/25/19 11:37 Propofol (Diprivan 20 Ml) Confirm Administered Dose 200 mg .ROUTE .STK-MED ONE Stop: 07/26/19 07:05 - Exam General: Reports: Alert, Oriented, Cooperative, No Acute Distress Lungs: Reports: Clear to Auscultation, Normal Respiratory Effort Cardiovascular: Reports: Regular Rate, Regular Rhythm, No Murmurs GI/Abdominal Exam: Soft, Non-Tender, No Organomegaly, No Distention *Q Meaningful Use (DIS) - VTE *Q VTE Pharmacological Contraindications *Q: Active Hemorrhage
== END 2019-07-27 13:12 | disposition home or self-care (01) | DRG 378 ==
LOC: JP.ED 09:32 → JP.ICU 10:47 → JP.MS 07-26 20:06
PROVIDERS: ADMIT Hospitalist; ATTEND Surgery
PROC: 0DJ08ZZ Inspection of Upper Intestinal Tract, Via Natural or Artificial Opening Endoscopic (ICD-10-PCS; principal; 2019-07-25)
PROC: 30233N1 Transfusion of Nonautologous Red Blood Cells into Peripheral Vein, Percutaneous Approach (ICD-10-PCS; 2019-07-25)
PROC: 0DJD8ZZ Inspection of Lower Intestinal Tract, Via Natural or Artificial Opening Endoscopic (ICD-10-PCS; 2019-07-26)
DX: K57.31 Diverticulosis of large intestine without perforation or abscess with bleeding (principal); J30.9 Allergic rhinitis, unspecified; H54.7 Unspecified visual loss; H91.90 Unspecified hearing loss, unspecified ear; D62 Acute posthemorrhagic anemia; K92.1 Melena; E78.00 Pure hypercholesterolemia, unspecified; I10 Essential (primary) hypertension; M19.90 Unspecified osteoarthritis, unspecified site; Z87.440 Personal history of urinary (tract) infections; Z79.02 Long term (current) use of antithrombotics/antiplatelets; K64.4 Residual hemorrhoidal skin tags; I25.10 Atherosclerotic heart disease of native coronary artery without angina pectoris; K29.71 Gastritis, unspecified, with bleeding; E78.5 Hyperlipidemia, unspecified; Z79.82 Long term (current) use of aspirin; Z79.899 Other long term (current) drug therapy; I25.2 Old myocardial infarction; Z95.5 Presence of coronary angioplasty implant and graft
CPT/HCPCS: 36415; 80053; 82272; 85025; 85610; C9113; J7030; 36430; 80048; 85018; 86850; 86900; 86901; 86920; 86922; 99285; A9270-GY; J2250; J2354; J2704; J3010; J7040; J7050; P9016

== ENCOUNTER 2019-09-10 10:25 | Emergency (ER) | payer MEDICARE, OTHER ==
[2019-09-10 10:50] VITALS: BP 174/79; PULSE 78
--- NOTE | 2019-09-10 11:31 | EDM.PDOC ---
ED HPI GENERAL MEDICAL PROBLEM - General Chief Complaint: Respiratory Problem Stated Complaint: SOB Time Seen by Provider: 09/10/19 11:27 Source of Information: Reports: Patient History Limitations: Reports: No Limitations - History of Present Illness INITIAL COMMENTS - FREE TEXT/NARRATIVE: pt arrived stating for the past 2 days she has been sob. She feels like her breathing is a great effort. The pt did have a stent placed in may and one in apr. This was done in [facility]. She did have a GI bleed about 3 weeks ago that was worked up here. She has noted normal colored stools recently. Pt is not eating well and is having nausea frequently. Onset: Gradual, Other ( this sob has occured in the last 2 days. ) Duration: Hour(s): Location: Reports: Chest, Abdomen Quality: Reports: Dull, Pressure Associated Symptoms: Reports: Shortness of Breath, Other (pt is having nausea and decvreased appetite. ) - Related Data Allergies Allergy/AdvReac Type Severity Reaction Status Date / Time No Known Allergies Allergy Verified 09/10/19 10:40 Home Meds: Home Meds atorvaSTATin [Lipitor] 40 mg PO BEDTIME 10/30/15 [History] Aspirin [Halfprin] 81 mg PO DAILY 07/25/19 [History] Clopidogrel [Plavix] 75 mg PO DAILY 07/25/19 [History] Pantoprazole [ProTONIX] 40 mg PO DAILY@0730 #30 tab.cr 07/27/19 [Rx] lisinopriL [Prinivil] 20 mg PO DAILY tablet 07/27/19 [Rx] Past Medical History HEENT History: Reports: Allergic Rhinitis, Hard of Hearing, Impaired Vision Cardiovascular History: Reports: High Cholesterol, Hypertension, NM, Stents Gastrointestinal History: Reports: None, GI Bleed Genitourinary History: Reports: UTI, Recurrent PLANT [employer]ER History: Reports: Musculoskeletal History: Reports: Osteoarthritis Hematologic History: Reports: Blood Transfusion(s) - Infectious Disease History Infectious Disease History: Reports: Chicken Pox, Measles, Mumps - Past Surgical History HEENT Surgical History: Reports: Tonsillectomy, Other (See Below) Cardiovascular Surgical History: Reports: Coronary Artery Stent, Other (See Below) Other Cardiovascular Surgeries/Procedures: STENTS PLACE IN APRIL AND MAY OF 2019 GI Surgical History: Reports: Colonoscopy, Other (See Below) Musculoskeletal Surgical History: Reports: Other (See Below) Social & Family History - Tobacco Use Smoking Status *Q: Never Smoker - Caffeine Use Caffeine Use: Reports: None ED ROS GENERAL - Review of Systems Review Of Systems: See Below Constitutional: Reports: Weakness, Decreased Appetite HEENT: Reports: No Symptoms Respiratory: Reports: Shortness of Breath, Other (pt is very sob with activity. ) Cardiovascular: Reports: Other (pt has the sensation of slight chest pressure. ) Endocrine: Reports: Fatigue GI/Abdominal: Reports: No Symptoms, Other ( she feels that she has diffuse tenderness in her abdoman since she had the GI bleed. ) : Reports: No Symptoms Musculoskeletal: Reports: No Symptoms Skin: Reports: No Symptoms Neurological: Reports: No Symptoms Psychiatric: Reports: Anxiety Hematologic/Lymphatic: Reports: No Symptoms ED EXAM, GENERAL - Physical Exam Exam: See Below Free Text/Narrative:: pt arrived with sob and she feels this is mainly with activity. She Has slight pressure in her chest mainly when she gets sob after activity. Exam Limited By: No Limitations General Appearance: Alert, Anxious, Mild Distress, Other (pt does have o2 sats at 100 %) Ears: Normal TMs Nose: Normal Inspection Throat/Mouth: Normal Inspection Head: Atraumatic Neck: Normal Inspection Respiratory/Chest: No Respiratory Distress Cardiovascular: Regular Rate, Rhythm GI/Abdominal: Other ( diffuse abdomanal tenderness without guarding. ) (Female) Exam: Deferred Rectal (Female) Exam: Deferred Back Exam: Normal Inspection Extremities: Normal Inspection Neurological: Alert, Oriented, Normal Cognition Psychiatric: Anxious Course - Vital Signs Last Recorded V/S: Last Vital Signs Temp 35.9 C L 09/10/19 10:49 Pulse 78 09/10/19 10:49 Resp 14 09/10/19 10:49 BP 174/79 H 09/10/19 10:49 Pulse Ox 100 09/10/19 10:49 - Orders/Labs/Meds Orders: Active Orders 24 hr Category Date Time Status EKG Documentation Completion [RC] ASDIRECTED Care 09/10/19 11:03 Active EKG 12 Lead [EK] Routine Ther 09/10/19 11:03 Ordered Labs: Laboratory Tests 09/10/19 09/10/19 09/10/19 Range/Units 11:03 11:03 11:05 WBC 5.3 (4.5-11.0) K/uL RBC 4.11 (3.30-5.50) M/uL Hgb 12.0 (12.0-15.0) g/dL Hct 36.3 (36.0-48.0) % MCV 88 (80-98) fL MCH 29 (27-31) pg MCHC 33 (32-36) % Plt Count 293 (150-400) K/uL Neut % (Auto) 74 H (36-66) % Lymph % (Auto) 15 L (24-44) % Elk % (Auto) 10 H (2-6) % Eos % (Auto) 1 L (2-4) % Baso % (Auto) 0 (0-1) % Sodium 128 L (140-148) mmol/L Potassium 4.1 (3.6-5.2) mmol/L Chloride 92 L (100-108) mmol/L Carbon Dioxide 23 (21-32) mmol/L Anion Gap 17.1 H (5.0-14.0) mmol/L BUN 16 (7-18) mg/dL Creatinine 1.0 (0.6-1.0) mg/dL Est Cr Clr Drug Dosing 40.21 mL/min Estimated GFR (MDRD) 54 L (>60) Glucose 101 (74-106) mg/dL Calcium 9.1 (8.5-10.1) mg/dL Total Bilirubin 0.4 (0.2-1.0) mg/dL AST 18 (15-37) U/L ALT 20 (12-78) U/L Alkaline Phosphatase 99 (46-116) U/L Troponin I < 0.017 (0.000-0.056) ng/mL Total Protein 7.3 (6.4-8.2) g/dL Albumin 4.2 (3.4-5.0) g/dL Globulin 3.1 (2.3-3.5) g/dL Albumin/Globulin Ratio 1.4 (1.2-2.2) Urine Color (YELLOW) Urine Appearance (CLEAR) Urine pH (5.0-8.0) Ur Specific [place] (1.008-1.030) Urine Protein (NEGATIVE) mg/dL Urine Glucose (UA) (NEGATIVE) mg/dL Urine Ketones (NEGATIVE) mg/dL Urine Occult Blood (NEGATIVE) Urine Nitrite (NEGATIVE) Urine Bilirubin (NEGATIVE) Urine Urobilinogen (0.2-1.0) EU/dL Ur Leukocyte Esterase (NEGATIVE) Urine RBC (0-5) Urine WBC (0-5) Ur Epithelial Cells Urine Bacteria 09/10/19 Range/Units 11:29 WBC (4.5-11.0) K/uL RBC (3.30-5.50) M/uL Hgb (12.0-15.0) g/dL Hct (36.0-48.0) % MCV (80-98) fL MCH (27-31) pg MCHC (32-36) % Plt Count (150-400) K/uL Neut % (Auto) (36-66) % Lymph % (Auto) (24-44) % [place] % (Auto) (2-6) % Eos % (Auto) (2-4) % Baso % (Auto) (0-1) % Sodium (140-148) mmol/L Potassium (3.6-5.2) mmol/L Chloride (100-108) mmol/L Carbon Dioxide (21-32) mmol/L Anion Gap (5.0-14.0) mmol/L BUN (7-18) mg/dL Creatinine (0.6-1.0) mg/dL Est Cr Clr Drug Dosing mL/min Estimated GFR (MDRD) (>60) Glucose (74-106) mg/dL Calcium (8.5-10.1) mg/dL Total Bilirubin (0.2-1.0) mg/dL AST (15-37) U/L ALT (12-78) U/L Alkaline Phosphatase (46-116) U/L Troponin I (0.000-0.056) ng/mL Total Protein (6.4-8.2) g/dL Albumin (3.4-5.0) g/dL Globulin (2.3-3.5) g/dL Albumin/Globulin Ratio (1.2-2.2) Urine Color Yellow (YELLOW) Urine Appearance Clear (CLEAR) Urine pH 7.0 (5.0-8.0) Ur Specific [place] 1.020 (1.008-1.030) Urine Protein Negative (NEGATIVE) mg/dL Urine Glucose (UA) Negative (NEGATIVE) mg/dL Urine Ketones Negative (NEGATIVE) mg/dL Urine Occult Blood Trace-intact H (NEGATIVE) Urine Nitrite Negative (NEGATIVE) Urine Bilirubin Negative (NEGATIVE) Urine Urobilinogen 0.2 (0.2-1.0) EU/dL Ur Leukocyte Esterase Negative (NEGATIVE) Urine RBC Not seen (0-5) Urine WBC 0-5 (0-5) Ur Epithelial Cells Rare Urine Bacteria Not seen Meds: Medications Discontinued Medications Generic Name Dose Route Start Last Admin Trade Name Freq PRN Reason Stop Dose Admin Ondansetron HCl 4 mg 09/10/19 11:34 09/10/19 11:38 Zofran Odt PO 09/10/19 11:35 4 mg ONETIME ONE Administration - Re-Assessments/Exams Free Text/Narrative Re-Assessment/Exam: 09/10/19 13:07 pt had a normal trop and no acute changes in ekg. Her hg is 12 and good, She is having some nausea on a ongoing basis. Her chest xray did not reveal acute problems. Her o2 sats are at 100%. Pt is having normal colored stools. Her angiogram was obtained from [facility] . She had a 95 % stenosis, localized of her RCA Departure - Departure Time of Disposition: 13:15 Disposition: Home, Self-Care 01 Condition: Fair Clinical Impression: SOB (shortness of breath), History of coronary artery stent placement, History of GI bleed - Discharge Information Referrals: Kaye Chase PA-C [Primary Care Provider] - Forms: ED Department Discharge Care Plan Goals: rtc for kathi, follow up appt with kaye Chase, keep appt in [place] with gastroenterology Sepsis Event Note (ED) - Evaluation Sepsis Screening Result: No Definite Risk - Focused Exam Vital Signs: Vital Signs Temp Pulse Resp BP Pulse Ox 09/10/19 10:49 35.9 C L 78 14 174/79 H 100 - My Orders Last 24 Hours: My Active Orders 09/10/19 11:03 EKG Documentation Completion [RC] ASDIRECTED EKG 12 Lead [EK] Routine - Assessment/Plan Last 24 Hours: My Active Orders 09/10/19 11:03 EKG Documentation Completion [RC] ASDIRECTED EKG 12 Lead [EK] Routine
[2019-09-10] MEDS ORDERED: Ondansetron 4 MG Tab.DIS PO ONE (11:34)
--- NOTE | 2019-09-10 12:13 | CRLCR ---
INDICATION: Short of breath. COMPARISON: None. TECHNIQUE: Two views. FINDINGS: No acute cardiopulmonary disease. Two round dense well-defined presumed calcified granulomas at the left base. Pulmonary vascularity and cardiomediastinal silhouette are normal. No pneumothorax or effusion. IMPRESSION: No acute cardiopulmonary disease. Sequela of prior granulomatous infection. Dictated by Geoff Kidd MD @ Sep 10 2019 12:10PM Signed by Dr. Geoff Kidd @ Sep 10 2019 12:12PM
== END 2019-09-10 14:22 | disposition home or self-care (01) ==
LOC: JP.ED 10:25
DX: R06.02 Shortness of breath (principal); I10 Essential (primary) hypertension; E78.00 Pure hypercholesterolemia, unspecified; I25.2 Old myocardial infarction; M19.90 Unspecified osteoarthritis, unspecified site; Z95.5 Presence of coronary angioplasty implant and graft; Z79.82 Long term (current) use of aspirin; Z79.899 Other long term (current) drug therapy; Z79.02 Long term (current) use of antithrombotics/antiplatelets
CPT/HCPCS: 36415; 71046; 80053; 81001; 84484; 85025; 93005; 99285; A9270; 93010

== ENCOUNTER 2019-10-09 13:08 | Emergency (ER) | payer MEDICARE, OTHER ==
[2019-10-09 13:35] VITALS: BP 189/88; PULSE 94
--- NOTE | 2019-10-09 14:08 | EDM.PDOC ---
ED HPI GENERAL MEDICAL PROBLEM - General Chief Complaint: Genitourinary Problem Stated Complaint: POSSIBLE UTI Time Seen by Provider: 10/09/19 13:56 Source of Information: Reports: Patient, Family, RN Notes Reviewed History Limitations: Reports: No Limitations - History of Present Illness INITIAL COMMENTS - FREE TEXT/NARRATIVE: 74-year-old female presents emergency department today with complaint of urinary symptoms he has some urgency since sensitivity and she feels she is not completely emptying her bladder when she does go to the bathroom. Does have a history of urinary tract infection however the last 1 was several years ago. No fevers - Related Data Allergies Allergy/AdvReac Type Severity Reaction Status Date / Time No Known Allergies Allergy Verified 10/09/19 13:36 Home Meds: Home Meds atorvaSTATin [Lipitor] 40 mg PO BEDTIME 10/30/15 [History] Aspirin [Halfprin] 81 mg PO DAILY 07/25/19 [History] Clopidogrel [Plavix] 75 mg PO DAILY 07/25/19 [History] Pantoprazole [ProTONIX] 40 mg PO DAILY@0730 #30 tab.cr 07/27/19 [Rx] lisinopriL [Prinivil] 20 mg PO DAILY tablet 07/27/19 [Rx] Dicyclomine [Bentyl] 10 mg PO BID 10/09/19 [History] hydrOXYzine HCL [hydrOXYzine] 25 mg PO ASDIRECTED 10/09/19 [History] Past Medical History HEENT History: Reports: Allergic Rhinitis, Hard of Hearing, Impaired Vision Cardiovascular History: Reports: CAD, High Cholesterol, Hypertension, ID, Stents Gastrointestinal History: Reports: GI Bleed Genitourinary History: Reports: UTI, Recurrent [employer]MENT CHAIR History: Reports: Musculoskeletal History: Reports: Osteoarthritis Hematologic History: Reports: Blood Transfusion(s) - Infectious Disease History Infectious Disease History: Reports: Chicken Pox, Measles, Mumps - Past Surgical History HEENT Surgical History: Reports: Tonsillectomy Cardiovascular Surgical History: Reports: Coronary Artery Stent, Other (See Below) Other Cardiovascular Surgeries/Procedures: STENTS PLACE IN APRIL AND MAY OF 2019 GI Surgical History: Reports: Colonoscopy, Other (See Below) Other GI Surgeries/Procedures: median arcuate ligament syndrome Social & Family History - Tobacco Use Smoking Status *Q: Never Smoker - Caffeine Use Caffeine Use: Reports: None - Recreational Drug Use Recreational Drug Use: No ED ROS GENERAL - Review of Systems Review Of Systems: See Below Constitutional: Reports: No Symptoms Respiratory: Reports: No Symptoms Cardiovascular: Reports: No Symptoms GI/Abdominal: Reports: No Symptoms : Reports: Dysuria, Frequency, Urinary Retention ED EXAM, RENAL/ - Physical Exam Exam: See Below Exam Limited By: No Limitations General Appearance: Alert, WD/WN, No Apparent Distress Respiratory/Chest: No Respiratory Distress GI/Abdominal: Normal Bowel Sounds, Soft, Non-Tender, No Organomegaly, No Distention, No Abnormal Bruit, No Mass Back Exam: Normal Inspection, Full Range of Motion. No: CVA Tenderness (R), CVA Tenderness (L) Course - Vital Signs Last Recorded V/S: Last Vital Signs Temp 97.4 F 10/09/19 13:44 Pulse 94 10/09/19 13:44 Resp 15 10/09/19 13:44 BP 189/88 H 10/09/19 13:44 Pulse Ox 99 10/09/19 13:44 - Orders/Labs/Meds Orders: Active Orders 24 hr Category Date Time Status CULTURE URINE [RM] Urgent Lab 10/09/19 13:57 Ordered Labs: Laboratory Tests 10/09/19 Range/Units 13:43 Urine Color Yellow (YELLOW) Urine Appearance Clear (CLEAR) Urine pH 7.0 (5.0-8.0) Ur Specific [place] 1.015 (1.008-1.030) Urine Protein Negative (NEGATIVE) mg/dL Urine Glucose (UA) Negative (NEGATIVE) mg/dL Urine Ketones Negative (NEGATIVE) mg/dL Urine Occult Blood Trace-intact H (NEGATIVE) Urine Nitrite Negative (NEGATIVE) Urine Bilirubin Negative (NEGATIVE) Urine Urobilinogen 0.2 (0.2-1.0) EU/dL Ur Leukocyte Esterase Negative (NEGATIVE) Urine RBC 0-5 (0-5) Urine WBC 0-5 (0-5) Ur Epithelial Cells Not seen Amorphous Sediment Not seen Urine Bacteria Rare Urine Mucus Not seen Departure - Departure Time of Disposition: 14:07 Disposition: Home, Self-Care 01 Condition: Fair Clinical Impression: Urinary frequency - Discharge Information Instructions: Urinary Tract Infection, Adult, [id number] Referrals: Kaye Chase PA-C [Primary Care Provider] - Additional Instructions: Take full course of antibiotics, please followup with your primary care provider in 3-5 days if not better, please call return to the emergency department with worsening of symptoms. Sepsis Event Note (ED) - Evaluation Sepsis Screening Result: No Definite Risk - Focused Exam Vital Signs: Vital Signs Temp Pulse Resp BP Pulse Ox 10/09/19 13:44 97.4 F 94 15 189/88 H 99 10/09/19 13:33 97.4 F 94 15 189/88 H 99 - My Orders Last 24 Hours: My Active Orders 10/09/19 13:57 CULTURE URINE [RM] Urgent - Assessment/Plan Last 24 Hours: My Active Orders 10/09/19 13:57 CULTURE URINE [RM] Urgent Plan: Assessment Acuity = acute Site and laterality = urinary frequency Etiology = suspicious for underlying infection Manifestations = none Location of injury = Home Lab values = urinalysis reveals trace amount of blood otherwise few bacteria no other signs of infection cultures pending Plan Elect to treat empirically Bactrim DS 1 tab p.o. twice daily x3 days follow-up primary care in 3 to 5 days if not better This note was dictated using [employer] voice recognition software please call with any questions on syntax or grammar.
== END 2019-10-09 14:16 | disposition home or self-care (01) ==
LOC: JP.ED 13:08
DX: R35.0 Frequency of micturition (principal); I25.10 Atherosclerotic heart disease of native coronary artery without angina pectoris; E78.00 Pure hypercholesterolemia, unspecified; I10 Essential (primary) hypertension; M19.90 Unspecified osteoarthritis, unspecified site; I25.2 Old myocardial infarction; Z95.5 Presence of coronary angioplasty implant and graft; Z79.82 Long term (current) use of aspirin; Z79.899 Other long term (current) drug therapy; Z79.2 Long term (current) use of antibiotics
CPT/HCPCS: 81001; 87086; 99283

== ENCOUNTER 2019-10-21 12:25 | Emergency (ER) | payer MEDICARE, OTHER ==
[2019-10-21 13:16] VITALS: BP 170/92; PULSE 95
--- NOTE | 2019-10-21 14:31 | EDM.PDOC ---
ED HPI GENERAL MEDICAL PROBLEM - General Chief Complaint: Abdominal Pain Stated Complaint: UPPER ABD PAIN Time Seen by Provider: 10/21/19 13:30 Source of Information: Reports: Patient, Family History Limitations: Reports: No Limitations - History of Present Illness INITIAL COMMENTS - FREE TEXT/NARRATIVE: 74-year-old female with abdominal pain secondary to median arcuate ligament syndrome, she had a procedure done 1 week ago that relieved her symptoms for 4 days but now they have returned. No nausea or vomiting, mostly just abdominal pain especially after eating. She is interested in having surgery. She is having trouble sleeping at night because of the discomfort. Onset: Gradual Duration: Day(s): (Symptoms have recurred for the last 2 days, she was struggling with symptoms for 2 to 3 months prior to her procedure) Location: Reports: Abdomen (Upper abdomen) Associated Symptoms: Reports: Other (Weight loss) Upper Abdomen Pain Score (Numeric/FACES): 10 - Related Data Allergies Allergy/AdvReac Type Severity Reaction Status Date / Time No Known Allergies Allergy Verified 10/21/19 13:05 Home Meds: Home Meds atorvaSTATin [Lipitor] 40 mg PO BEDTIME 10/30/15 [History] Aspirin [Halfprin] 81 mg PO DAILY 07/25/19 [History] Clopidogrel [Plavix] 75 mg PO DAILY 07/25/19 [History] Pantoprazole [ProTONIX] 40 mg PO DAILY@0730 #30 tab.cr 07/27/19 [Rx] lisinopriL [Prinivil] 20 mg PO DAILY tablet 07/27/19 [Rx] Dicyclomine [Bentyl] 10 mg PO BID 10/09/19 [History] hydrOXYzine HCL [hydrOXYzine] 25 mg PO ASDIRECTED 10/09/19 [History] Metoprolol Succinate [Toprol XL] 50 mg PO BID 10/21/19 [History] Past Medical History HEENT History: Reports: None Cardiovascular History: Reports: CAD, High Cholesterol, Hypertension, DC, Stents Gastrointestinal History: Reports: GI Bleed, Other (See Below) Other Gastrointestinal History: Median acuate ligament syndrome Genitourinary History: Reports: UTI, Recurrent [employer] History: Reports: Musculoskeletal History: Reports: Osteoarthritis Hematologic History: Reports: Blood Transfusion(s) - Infectious Disease History Infectious Disease History: Reports: Chicken Pox, Measles, Mumps - Past Surgical History Head Surgeries/Procedures: Reports: None HEENT Surgical History: Reports: Tonsillectomy Cardiovascular Surgical History: Reports: None Respiratory Surgical History: Reports: None Other GI Surgeries/Procedures: median arcuate ligament syndrome Female Surgical History: Reports: None Musculoskeletal Surgical History: Reports: None Dermatological Surgical History: Reports: None Social & Family History - Tobacco Use Smoking Status *Q: Never Smoker - Caffeine Use Caffeine Use: Reports: None - Recreational Drug Use Recreational Drug Use: No ED ROS GENERAL - Review of Systems Review Of Systems: See Below Constitutional: Reports: Malaise. Denies: Fever, Chills HEENT: Reports: No Symptoms Respiratory: Denies: Shortness of Breath Cardiovascular: Denies: Chest Pain, Palpitations GI/Abdominal: Reports: Abdominal Pain. Denies: Vomiting : Reports: No Symptoms Skin: Reports: No Symptoms Neurological: Reports: Other (Insomnia) ED EXAM, GI/ABD - Physical Exam Exam: See Below Exam Limited By: No Limitations General Appearance: Alert, No Apparent Distress Eyes: Bilateral: Normal Appearance Head: Atraumatic Respiratory/Chest: No Respiratory Distress, Lungs Clear Cardiovascular: Regular Rate, Rhythm GI/Abdominal Exam: Normal Bowel Sounds, Soft, Tender (Mild discomfort with palpation across the upper abdomen, no focal guarding or rebound) Extremities: Normal Inspection Neurological: Alert, Oriented Psychiatric: Normal Affect, Normal Mood Skin Exam: Warm, Dry Course - Vital Signs Last Recorded V/S: Last Vital Signs Temp 97.7 F 10/21/19 13:17 Pulse 95 10/21/19 13:17 Resp 15 10/21/19 13:17 BP 170/92 H 10/21/19 13:17 Pulse Ox 99 10/21/19 13:17 - Re-Assessments/Exams Free Text/Narrative Re-Assessment/Exam: 10/21/19 15:55 Phone discussions were held with interventional radiology, surgery, gastroenterology and a plan has been set up to see the patient to prepare for surgery. She was given 10 doses of 5 mg Ambien to help her sleep, and will stick with a very bland soft diet through the weekend and the recheck next week by the surgical team. Departure - Departure Time of Disposition: 14:42 Disposition: Home, Self-Care 01 Clinical Impression: Median arcuate ligament syndrome Abdominal pain Qualifiers: Abdominal location: upper abdomen, unspecified Qualified Code(s): R10.10 - Upper abdominal pain, unspecified - Discharge Information Instructions: Abdominal Pain, Adult, [id number] Referrals: Kaye Chase PA-C [Primary Care Provider] - Forms: ED Department Discharge Care Plan Goals: Continue your current medications, use new prescription for sleep as needed and follow-up in [place] for surgical consultation as instructed per your physicians in [place]. Sepsis Event Note (ED) - Evaluation Sepsis Screening Result: No Definite Risk - Focused Exam Vital Signs: Vital Signs Temp Pulse Resp BP Pulse Ox 10/21/19 13:17 97.7 F 95 15 170/92 H 99 10/21/19 13:15 97.7 F 95 15 170/92 H 99
== END 2019-10-21 14:43 | disposition home or self-care (01) ==
LOC: JP.ED 12:25
DX: I77.4 Celiac artery compression syndrome (principal); I25.10 Atherosclerotic heart disease of native coronary artery without angina pectoris; E78.00 Pure hypercholesterolemia, unspecified; I10 Essential (primary) hypertension; I25.2 Old myocardial infarction; M19.90 Unspecified osteoarthritis, unspecified site; Z79.899 Other long term (current) drug therapy; Z79.82 Long term (current) use of aspirin
CPT/HCPCS: 99283